=== PATIENT | female | born 1960 | race African-American/Black ===

== ENCOUNTER 2024-11-10 19:07 | Emergency (ER) | payer MEDICAID, OTHER ==
[~2024-11-10] VITALS: Ht 170.2 cm; Wt 90.7 kg
[~2024-11-10 19:07] MED LIST: DIET PILL
[2024-11-10 19:57] VITALS: BP 127/78; TEMP 97.8; O2SAT 99
== END 2024-11-10 19:59 | disposition left against medical advice (07) ==
LOC: ER 19:09
DX: R55 Syncope and collapse (principal); R42 Dizziness and giddiness; R53.1 Weakness; I10 Essential (primary) hypertension; Z88.5 Allergy status to narcotic agent
CPT/HCPCS: 82962-TC